=== PATIENT | female | born 1980 | race Caucasian/White ===

== ENCOUNTER 2022-07-11 14:43 | Emergency (ER) | payer OTHER, SELFPAY ==
--- NOTE | ~2022-07-11 | XR_ITS ---
EXAMINATION: XR CHEST CLINICAL INFORMATION: Chest pain COMPARISON: None TECHNIQUE: Frontal view of the chest was obtained. FINDINGS: No significant abnormality is noted involving the heart, lungs, mediastinum, bony thorax or soft tissues. XR/XR chest 1V IMPRESSION: Unremarkable examination.
[2022-07-11 14:52] VITALS: BP 104/83; BP 131/68; PULSE 95; PULSE 98; RESP 16; TEMP 37.2; O2SAT 97; O2SAT 98; BMI 25.4
--- NOTE | 2022-07-11 15:04 | ECG_ITS ---
Test Reason : CHEST PAIN Blood Pressure : / mmHG Vent. Rate : 082 BPM Atrial Rate : 082 BPM P-R Int : 158 ms QRS Dur : 086 ms QT Int : 380 ms P-R-T Axes : 043 028 027 degrees QTc Int : 443 ms Normal sinus rhythm T wave abnormality, consider anterior ischemia RSR' or QR pattern in V1 suggests right ventricular conduction delay Low voltage QRS Abnormal ECG No previous ECGs available Referred By: Nghia Remy Electronically Signed By:PRASAD MITTAL MD
--- NOTE | 2022-07-11 15:05 | ED.CHESTPAIN ---
HPI - Chest Pain General Chief Complaint: Chest Pain Stated Complaint: HEAVINESS WHILE BREATHING PER EMS FROM [facility] Time Seen by Provider: 07/11/22 14:55 Source: patient Mode of arrival: EMS Limitations: no limitations History of Present Illness HPI narrative: THIS IS 42 YEARS OLD FEMALE WITH HISTORY OF ANXIETY AND PARANOIA HISTORY OF NONCARDIAC CHEST PAIN PRESENTED TO THE EMERGENCY DEPARTMENT VIA AMBULANCE FROM [facility] WITH A CHIEF COMPLAINT OF CHEST PAIN, ACCORDING TO THE ADMISSION NOTE OF 07/09/2022 PATIENT WAS TRAN[facility]ERRED TO THE [facility] FROM [facility] AND HAD CHEST PAIN ON ADMISSION. MD complaint: chest pain Onset (ago): week(s) (1) Timing of current episode: episodic Prior episodes: Yes Onset: during rest Pain location: substernal Pain radiation: none Quality: dull Relieving factors: nothing Exacerbating factors: nothing Risk Factors Coronary artery disease risk factors: none Thoracic aortic dissection risk factors: none Related Data Allergies Allergy/AdvReac Type Severity Reaction Status Date / Time Penicillins Allergy Rash Verified 07/11/22 15:03 Review of Systems Constitutional: Constitutional: Reports no additional constitutional complaints ENT: Reports system reviewed and no additional complaints, except as documented Cardiovascular: Cardiovascular: Reports chest pain Psychiatric: Psychiatric: Reports other (PARANOIA) [facility] Past Medical History [facility] Narrative: PARANOIA/DEPRESSIOIN/OPIOID ABUSE Social History Social History Advance Directives: No Advance Directives Information Provided: No Physical Exam Vital Signs: Vital Signs: Last Vital Signs Temp 97.8 F 07/11/22 15:28 Pulse 81 07/11/22 15:28 Resp 16 07/11/22 15:28 BP 137/81 07/11/22 15:28 Pulse Ox 99 07/11/22 15:28 O2 Del Method 07/11/22 15:28 BMI result Body Mass Index 25.4 Const: General: cooperative Nutritional Appearance: average body habitus HEENT: Head: Yes normal to inspection Face and sinus: Yes normal facial exam Mouth: Normal oral and palatal mucosa present Throat: Yes posterior oropharynx normal Neck: Neck: Yes normal visual inspection Chest: Chest palpation & inspection: normal inspection of the chest Resp: Effort & Inspection: normal respiratory effort Auscultation: clear to auscultation bilaterally Cardio: Jugular venous distension: no JVD Rate: regular rate Rhythm: regular rhythm GI: Inspection: Yes normal to inspection Palpation (GI): Soft to palpation, not firm and nontender Skin: General skin exam: no rashes or lesions noted and elasticity normal Rashes: no rashes MDM - Chest Pain Lab Data Result diagrams: 07/11/22 15:51 07/11/22 15:51 Labs: Lab Results 07/11/22 07/11/22 07/11/22 Range/Units 15:51 15:51 15:51 WBC 8.5 (4.8-10.8) X10*3/uL RBC 4.13 L (4.20-5.50) X10*6/uL Hgb 12.5 (12.0-16.0) g/dl Hct 37.0 (37.0-47.0) % MCV 89.6 (80.0-98.0) fL MCH 30.3 (27.0-33.0) pg MCHC 33.8 (31.0-35.0) g/dl RDW 11.9 (11.0-16.0) % Plt Count 234 (160-400) X10*3/uL MPV 9.8 (9.4-12.3) fL Immature Gran % (Auto) 0.1 (0.0-0.4) % Neut % (Auto) 67.4 (45-73) % Lymph % (Auto) 21.7 (20-40) % Piatt % (Auto) 8.4 (2-11) % Eos % (Auto) 1.9 (0-4) % Baso % (Auto) 0.5 (0-2) % Lymph # (Auto) 1.8 (1.2-4.9) X10*3/uL Piatt # (Auto) 0.7 (0.1-1.2) X10*3/uL Eos # (Auto) 0.2 (0.0-0.4) X10*3/uL Baso # (Auto) 0.0 (0.0-0.2) X10*3/uL Abs Immat Gran (auto) 0.01 (0.00-0.03) X10*3/uL Absolute Neuts (auto) 5.7 (2.0-8.3) x10*3/uL Absolute Nucleated RBC 0.000 (0.0-0.012) X10*3/uL Nucleated RBC % (auto) 0.0 (0.0-0.2) /100WBC D-Dimer High Sensitivty NG/ML Sodium 142 (135-145) mmol/L Potassium 4.1 (3.3-5.1) mmol/L Chloride 105 (96-108) mmol/L Carbon Dioxide 26 (22-29) mmol/L Anion Gap 15 (12-20) BUN 10 (9-16) mg/dL Creatinine 0.74 (0.5-1.4) mg/dL Estim Creat Clear Calc 98.3 Estimated GFR > 60 Random Glucose 107 (60-115) mg/dL Calcium 8.9 (8.4-10.2) mg/dL Total Bilirubin 0.6 (0.0-1.0) mg/dL AST 15 (5-31) U/L ALT 12 (0-31) U/L Alkaline Phosphatase 58 (39-117) U/L Troponin I High Sens < 3.5 (<3.5-17.0) ng/L Total Protein 7.5 (6.5-8.0) g/dL Albumin 4.4 (3.5-5.0) g/dL 07/11/22 Range/Units 15:51 WBC (4.8-10.8) X10*3/uL RBC (4.20-5.50) X10*6/uL Hgb (12.0-16.0) g/dl Hct (37.0-47.0) % MCV (80.0-98.0) fL MCH (27.0-33.0) pg MCHC (31.0-35.0) g/dl RDW (11.0-16.0) % Plt Count (160-400) X10*3/uL MPV (9.4-12.3) fL Immature Gran % (Auto) (0.0-0.4) % Neut % (Auto) (45-73) % Lymph % (Auto) (20-40) % Piatt % (Auto) (2-11) % Eos % (Auto) (0-4) % Baso % (Auto) (0-2) % Lymph # (Auto) (1.2-4.9) X10*3/uL Piatt # (Auto) (0.1-1.2) X10*3/uL Eos # (Auto) (0.0-0.4) X10*3/uL Baso # (Auto) (0.0-0.2) X10*3/uL Abs Immat Gran (auto) (0.00-0.03) X10*3/uL Absolute Neuts (auto) (2.0-8.3) x10*3/uL Absolute Nucleated RBC (0.0-0.012) X10*3/uL Nucleated RBC % (auto) (0.0-0.2) /100WBC D-Dimer High Sensitivty < 150 NG/ML Sodium (135-145) mmol/L Potassium (3.3-5.1) mmol/L Chloride (96-108) mmol/L Carbon Dioxide (22-29) mmol/L Anion Gap (12-20) BUN (9-16) mg/dL Creatinine (0.5-1.4) mg/dL Estim Creat Clear Calc Estimated GFR Random Glucose (60-115) mg/dL Calcium (8.4-10.2) mg/dL Total Bilirubin (0.0-1.0) mg/dL AST (5-31) U/L ALT (0-31) U/L Alkaline Phosphatase (39-117) U/L Troponin I High Sens (<3.5-17.0) ng/L Total Protein (6.5-8.0) g/dL Albumin (3.5-5.0) g/dL ECG Data ECG #1: Pacemaker model: NORMAL SINUS RHYTHM RATE [address]-T CHANGES Discharge Plan Discharge Clinical Impression: Atypical chest pain Patient Disposition: [facility]fer [facility] Instructions: Noncardiac Chest Pain (ED) Additional Instructions: FOLLOW-UP WITH YOUR PRIMARY CARE PHYSICIAN, YOU EKG WAS NORMAL YOUR BLOOD WORKUP FOR HEART ATTACK WAS NEGATIVE, THE BLOOD WORK FOR BLOOD CLOT WERE NEGATIVE
[2022-07-11 15:28] VITALS: BP 137/81; PULSE 81; RESP 16; TEMP 36.6; O2SAT 99
[2022-07-11 15:56] LABS: MANUAL DIFF FLAG NO
[2022-07-11 15:57] LABS: Basophils Percent Auto 0.5 % (0-2); Eosinophils Absolute Auto 0.2 X10*3/uL (0.0-0.4); Eosinophils Percent Auto 1.9 % (0-4); Hemoglobin 12.5 g/dl (12.0-16.0); Imm Gran Abs Auto 0.01 X10*3/uL (0.00-0.03); Imm Gran Pct Auto 0.1 % (0.0-0.4); Lymphocytes Absolute Auto 1.8 X10*3/uL (1.2-4.9); Lymphocytes Percent Auto 21.7 % (20-40); Mean Corpuscular HGB Conc 33.8 g/dl (31.0-35.0); Mean Corpuscular Hemoglobin 30.3 pg (27.0-33.0); Mean Corpuscular Volume 89.6 fL (80.0-98.0); Mean Platelet Volume 9.8 fL (9.4-12.3); Monocytes Absolute Auto 0.7 X10*3/uL (0.1-1.2); Monocytes Percent Auto 8.4 % (2-11); Neutrophils Absolute Auto 5.7 x10*3/uL (2.0-8.3); Neutrophils Percent Auto 67.4 % (45-73); Platelet Count 234 X10*3/uL (160-400); Red Blood Count 4.13 X10*6/uL (4.20-5.50); Red Cell Distribution Width 11.9 % (11.0-16.0); White Blood Count 8.5 X10*3/uL (4.8-10.8)
[2022-07-11 16:05] LABS: D Dimer High Sensitivity < 150 NG/ML
[2022-07-11 16:14] LABS: Alanine Aminotransferase 12 U/L (0-31); Albumin Level 4.4 g/dL (3.5-5.0); Alkaline Phosphatase 58 U/L (39-117); Anion Gap 15 (12-20); Aspartate Amino Transferase 15 U/L (5-31); Bilirubin Total 0.6 mg/dL (0.0-1.0); Blood Urea Nitrogen 10 mg/dL (9-16); Calcium 8.9 mg/dL (8.4-10.2); Carbon Dioxide 26 mmol/L (22-29); Chloride 105 mmol/L (96-108); Creatinine Clr Calc Pharmacy 98.3; Estimated Glomerular Filt Rate > 60; Glucose Random 107 mg/dL (60-115); Potassium 4.1 mmol/L (3.3-5.1); Sodium 142 mmol/L (135-145); Total Protein 7.5 g/dL (6.5-8.0)
[2022-07-11 16:20] LABS: Troponin-I High Sensitivity < 3.5 ng/L (<3.5-17.0)
--- OUTSIDE RECORDS SUMMARY | 2022-07-11 16:25 | XMS_ITS ---
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 ALLERGIES Substance Reaction Event Type Date Status Penicillin G Benzathine Unknown Drug Allergy Feb, Acti ve ENCOUNTERS Encounter Location Date Diagnosis Mariana Medina MD [address], Feb, [place]11[place] [id number] and Vitamin D de ficiency E55.9 Mariana Medina MD [address], January, [place]11.[place] [id number] and Vitamin D de ficiency E55.9 Mariana Medina MD [address], Dec, [place]11[place] [id number] and Vitamin D de ficiency E55.9 IMMUNIZATIONS No Known Immunizations SOCIAL HISTORY Qualifiers Date Never Smoker REASON FOR REFERRAL FUNCTIONAL STATUS PLAN OF CARE Activity Details Follow Up 4 Weeks Reason: Pending Test LIPID PANEL Pending Test COMPREHENSIVE METABOLIC PANE L Pending Test CBC (H/H, RBC, INDICES, WBC, PLT) Pending Test VITAMIN D, 25 HYDROXY VITAL SIGNS Height 66 in 2022-02-10 Height 66 in 2022-01-14 Height 66 in 2021-12-24 Weight 169 lbs 2022-02-10 Weight 173 lbs 2022-01-14 Weight 169 lbs 2021-12-24 BMI 27.27 kg/m2 2022-02-10 BMI 27.92 kg/m2 2022-01-14 BMI 27.27 kg/m2 2021-12-24 Temperature 97.3 degrees Fahrenheit 2022-02-10 Temperature 97.3 degrees Fahrenheit 2022-01-14 Temperature 98.3 degrees Fahrenheit 2021-12-24 Heart Rate 71 /min 2022-02-10 Heart Rate 99 /min 2022-01-14 Heart Rate 84 /min 2021-12-24 Respiratory Rate 16 /min 2022-02-10 Respiratory Rate 16 /min 2022-01-14 Respiratory Rate 16 /min 2021-12-24 Blood pressure systolic 122 mm Hg 2022-02-10 Blood pressure diastolic 78 mm Hg 2022-02-10 MEDICATIONS Medication Instructions Dosage Frequency Start End Duration Statu s Date Date Albuterol Inhalation every 1 puff as 4h 30 days Act laila Sulfate HFA 4 hrs needed 108 (90 Base) MCG/ACT Oxybutynin Orally Once a 1 tablet 24h Feb, 30 day(s) Acti ve Chloride 5 MG day 2021 Naloxone HCl Injection PRN as directed 30 days A ctive 0.4 MG/ML Suboxone 8-2 Sublingual Once 1.5 film 24h Feb, 28 days Ac tive MG a day under the 2021 tongue and allow to dissolve PROCEDURES Procedure Date Ordered Result Body Site DRUG TEST PRSMV DIR OPT OBS December 24, 2021 DRUG TEST PRSMV DIR OPT OBS January 14, 2022 DRUG TEST PRSMV DIR OPT OBS February 10, 2022 RESULTS No Results REASON FOR VISIT Opiate then Suboxone use, Asthma, UTI, Opiate then Suboxone use, Asthma, UTI, Opiate then Suboxone use, Asthma, UTI Insurance Providers [facility] Member Patient Patient Patient Patient Patient Subscriber Subscriber Subscriber Group Insurance Plan Plan Plan Plan ID Relationship Address Phone Name Date of ID Name Date of No Type Insurance Insurance Insurance Coverage to Subscriber Address Phone Name Dates [facility] [place] [address] [place] [id number] [facility] [address] [facility] [place] [id number] [place] [facility] Plan
== END 2022-07-11 18:25 ==
PROVIDERS: Emergency Provider Emergency Medicine
DX: R07.89 Other chest pain (principal); Z79.899 Other long term (current) drug therapy
CPT/HCPCS: 36415; 71045; 80053; 84484; 85025; 85379; 93005; 99284